=== PATIENT | female | born 1970 | race Caucasian/White ===

== ENCOUNTER 2018-09-16 14:25 | Emergency (ER) | payer MEDICAID ==
[~2018-09-16] VITALS: Ht 175.3 cm; Wt 68.0 kg
--- NOTE | 2018-09-16 15:30 | NUR ---
C/O OF CHEST WALL PAIN, SP BREAST AUGMENTATION LAST WED PATIENT A/OX3, NO SOB NOTED, NO DISTRESS. PLACED ON THE MONITOR.
[2018-09-16 15:53] LABS: BASOPHILS % (AUTO) 0.4 % (0.0-2.0); EOSINOPHILS % (AUTO) 2.2 % (0.0-6.0); HEMATOCRIT 41 % (33-45); LYMPHOCYTES # (AUTO) 1.7 /CMM (0.8-4.8); LYMPHOCYTES % (AUTO) 14.6 % (20.0-44.0); MEAN CORPUSCULAR HGB CONC 34 g/dl (31.0-36.0); MEAN CORPUSCULAR VOLUME 95 fL (82-100); MONOCYTES # (AUTO) 0.7 /CMM (0.1-1.30); MONOCYTES % (AUTO) 5.8 % (2.0-12.0); NEUTROPHILS # (AUTO) 9.1 /CMM (1.8-8.9); PLATELET COUNT (AUTO) 255 /CMM (150-450); RED BLOOD CELL COUNT(AUTO) 4.32 MIL/uL (4.0-5.2); WHITE BLOOD COUNT (AUTO) 11.8 K/uL (4.3-11.0)
[2018-09-16] MEDS ORDERED: predniSONE 20 MG TABLET PO ONE (16:00)
[2018-09-16] MEDS ORDERED: diphenhydrAMINE HCL 25 MG CAPSULE PO ONE (16:00)
[2018-09-16] MEDS ORDERED: FAMOTIDINE (20 MG) 20 MG TABLET PO ONE (16:00)
[2018-09-16] MEDS ORDERED: FAMOTIDINE (20 MG) 20 MG TABLET ONE (16:07)
[2018-09-16] MEDS ORDERED: predniSONE 20 MG TABLET ONE (16:07)
[2018-09-16] MEDS ORDERED: diphenhydrAMINE HCL 25 MG CAPSULE ONE (16:07)
[2018-09-16 16:10] LABS: CALCIUM, SERUM 9.5 mg/dL (8.5-10.1); CARBON DIOXIDE 28 mmol/L (21-32); CHLORIDE 101 mmol/L (98-107); CREATININE 0.8 mg/dL (0.6-1.3); GLUCOSE 114 mg/dL (74-106); POTASSIUM 4.4 mmol/L (3.5-5.1); SODIUM SERUM 138 mmol/L (136-145); UREA NITROGEN, BLOOD 8 mg/dL (7-18)
[2018-09-16 16:16] LABS: ALANINE AMINOTRANSFERASE 43 U/L (12-78); ALBUMIN 3.8 g/dL (3.4-5.0); ALKALINE PHOSPHATASE 50 U/L (46-116); ASPARTATE AMINOTRANSFERASE 32 U/L (15-37); BILIRUBIN,DIRECT 0.1 mg/dL (0.0-0.2); BILIRUBIN,TOTAL 0.4 mg/dL (0.2-1.0); TOTAL PROTEIN, SERUM 7.9 g/dL (6.4-8.2)
[2018-09-16] MEDS ORDERED: CT SWABBABLE VALVE TRANS SET 1 EA INFUS.SET MC ONE (16:28)
[2018-09-16] MEDS ORDERED: IOHEXOL-350 100 ML VIAL IV ONE (16:28)
[2018-09-16] MEDS ORDERED: IV NS 0.9% 250 ML IV ONE (16:28)
[2018-09-16] MEDS ORDERED: ALBUTEROL FS 2.5 MG/3 ML VIAL.NEB NEB ONE (17:00)
[2018-09-16] MEDS ORDERED: IPRATROPIUM NEB FS 0.5 MG/2.5 ML AMPUL.NEB NEB ONE (17:00)
[2018-09-16] MEDS ORDERED: ALBUTEROL FS 2.5 MG/3 ML VIAL.NEB ONE (17:15)
[2018-09-16] MEDS ORDERED: IPRATROPIUM NEB FS 0.5 MG/2.5 ML AMPUL.NEB ONE (17:16)
--- NOTE | 2018-09-16 17:54 | NUR ---
piv REMOVED, rx provided, Patient discharged to home in stable condition. Written and verbal after care instructions given. Patient verbalizes understanding of instruction.
[2018-09-16 17:56] VITALS: BP 103/75
== END 2018-09-16 17:57 | disposition home or self-care (01) ==
LOC: ER 14:25
DX: T78.40XA Allergy, unspecified, initial encounter (principal); R06.2 Wheezing; Z90.89 Acquired absence of other organs; Z98.890 Other specified postprocedural states; X58.XXXA Exposure to other specified factors, initial encounter
CPT/HCPCS: 36415; 71045; 71275; 80048; 80076; 84484; 85025; 93005; 94640; 99284; J7050; J7512; Q0163; Q9967

== ENCOUNTER 2024-07-06 04:45 | Emergency (ER) | payer OTHER ==
[~2024-07-06] VITALS: Ht 175.3 cm; Wt 72.6 kg
[2024-07-06 04:55] VITALS: BP 133/85; TEMP 98.6
[2024-07-06] MEDS ORDERED: AMOX-430 PO (05:35)
[2024-07-06 05:40] VITALS: O2SAT 98
== END 2024-07-06 05:41 | disposition home or self-care (01) ==
LOC: ER 04:45
DX: S01.111A Laceration without foreign body of right eyelid and periocular area, initial encounter (principal); Z90.49 Acquired absence of other specified parts of digestive tract; W55.03XA Scratched by cat, initial encounter; Y93.89 Activity, other specified; Y92.89 Other specified places as the place of occurrence of the external cause; Y99.8 Other external cause status
CPT/HCPCS: 12013; 99283; A6403